=== PATIENT | male | born 1970 | race Caucasian/White ===

== ENCOUNTER 2019-03-14 09:29 | Day surgery (SDC) | payer OTHER ==
[~2019-03-14] VITALS: Ht 182.9 cm; Wt 95.8 kg
[~2019-03-14 09:29] MED LIST: ATEN50 PO; Alprazolam0.5 MG PO; CIPR500 PO; CYCL10 PO; Cipro500 MG PO; HYDACE10B PO; IBUP600 PO; LAMO100 PO; LEVO750 PO; Mobic15 MG PO; OXYC5; Prednisone20 MG PO; TAMS.4ER PO; TRAM50 PO; Ultram50 MG PO; [UNRECOGNIZED DRUG - OTHER] PO
[2019-03-14] MEDS ORDERED: VITAMIN D31000 UNIT PO (09:37)
[2019-03-14] MEDS ORDERED: TADA10TA PO (09:37)
[2019-03-14] MEDS ORDERED: LEVE500 PO (09:38)
[2019-03-14] MEDS ORDERED: LAMO100 PO (09:38)
[2019-03-14] MEDS ORDERED: Lamictal100 MG PO (09:38)
[2019-03-14] MEDS ORDERED: Inderal40 MG PO (09:39)
[2019-03-14] MEDS ORDERED: LITH300ER PO (09:39)
[2019-03-14] MEDS ORDERED: SERT100 PO (09:40)
--- NOTE | 2019-03-14 09:46 | NUR ---
History, Chart, Medications and Allergies reviewed before start of procedure. Patient confirms NPO status and agrees with scheduled surgery. Reports taking 3/4 of his prep with clear results. Patient States Post-Procedure ride home has been arranged with his mom.
--- NOTE | 2019-03-14 09:49 | NUR ---
REPORTS TAKING NO MEDICATIONS TODAY.
--- NOTE | 2019-03-14 10:28 | NUR ---
03/14/19 1028 Arsenio Aguiar History, Chart, Medications and Allergies reviewed before start of procedure.MONITOR INTACT WITH CONTINUOUS PULSE OXIMETRY AND INTERMITTENT BP.O2 VIA N/C INTACT THROUGHOUT SEDATION/PROCEDURE. Patient confirms NPO status and agrees with scheduled surgery.PATIENT DETERMINED TO BE ASA APPROPRIATE FOR PROPOFOL SEDATION PRIOR TO START OF PROCEDURE BY DR. CORTEZ.
--- NOTE | 2019-03-14 11:06 | NUR ---
DR CORTEZ SPOKE TO PT. PT SLEEPY BUT TALKING TO RN.
--- NOTE | 2019-03-14 11:15 | NUR ---
PT MOM WILL BE RIDE HOME.
--- NOTE | 2019-03-14 11:22 | NUR ---
Discharge instructions reviewed with patient. Patient verbalizes understanding. Copy given to patient to take home.PT HAS NO QUESTIONS OR CONCERNS WITH D.C. PT HAS PAPERWORK. PT TOLERATED JUICE WO DIFF. PT HAS ALL PERSONAL BELONGINGS INCLUDING GLASSES. PT DOES NOT WANT WC OUT WANTS TO WALK OUT.
--- NOTE | 2019-03-14 11:29 | NUR ---
PT DRESSED AND WALKING OUT TO MEET HIS MOM
== END 2019-03-14 22:56 | disposition home or self-care (01) ==
LOC: ORSCMMR 09:29 → ORD 10:30 → ORSCMMR 22:56
PROVIDERS: Internal Medicine Gastroenterology
PROC: 0DBB8ZX Excision of Ileum, Via Natural or Artificial Opening Endoscopic, Diagnostic (ICD-10-PCS; principal; 2019-03-14 10:30)
PROC: 0DBN8ZX Excision of Sigmoid Colon, Via Natural or Artificial Opening Endoscopic, Diagnostic (ICD-10-PCS; principal; 2019-03-14 10:30)
PROC: 0DBL8ZX Excision of Transverse Colon, Via Natural or Artificial Opening Endoscopic, Diagnostic (ICD-10-PCS; principal; 2019-03-14 10:30)
PROC: 0DBK8ZX Excision of Ascending Colon, Via Natural or Artificial Opening Endoscopic, Diagnostic (ICD-10-PCS; principal; 2019-03-14 10:30)
DX: R19.7 Diarrhea, unspecified (principal); D12.2 Benign neoplasm of ascending colon; F31.9 Bipolar disorder, unspecified; E78.00 Pure hypercholesterolemia, unspecified; F17.210 Nicotine dependence, cigarettes, uncomplicated; Z79.899 Other long term (current) drug therapy
CPT/HCPCS: 88305; J2250; J2704; J7120

== ENCOUNTER → 2020-03-27 | Outpatient (CLI) | payer OTHER ==
[~2020-03-27] MED LIST changes: +Inderal40 MG PO; +LEVE500 PO; +LITH300ER PO; +Lamictal100 MG PO; +ONDA4ODT MM; +SERT100 PO; +TADA10TA PO; +VITAMIN D31000 UNIT PO
[2020-03-27 17:06] LABS: PSA, %Free 20.1 %; PSA, Free 0.272 ng/mL
== END | disposition home or self-care (01) ==
LOC: LAB SHORT 12:49 → LAB 12:49
PROVIDERS: Nurse Practitioner Family
DX: R34 Anuria and oliguria (principal); R33.9 Retention of urine, unspecified; R39.12 Poor urinary stream
CPT/HCPCS: 84153; 84154

== ENCOUNTER 2021-04-15 06:23 | Inpatient (IN) | payer OTHER ==
[~2021-04-15] VITALS: Ht 182.9 cm; Wt 90.5 kg
[~2021-04-15 06:23] MED LIST changes: +AMOCLA875 PO; +Norco 5-325 Ta1 EACH PO; +XANAX0.5 MG PO; +ZOCOR20 MG PO
--- NOTE | 2021-04-15 07:13 | NUR ---
Ambulatory in Day Surgery. Patient states colon prep results clear. History, Chart, Medications and Allergies reviewed before start of procedure. Lungs clear T/O to Auscultation. Patient confirms NPO status and agrees with scheduled surgery. Pre-Op teaching done. Pt verbalizes understanding.
--- NOTE | 2021-04-15 09:34 | NUR ---
04/15/21 0934 Brian Dang UPON SKIN ASSESMENT ON OR TABLE PT FOUND TO HAVE REDDENED SKIN AND ABRASIONS IN THE AREA ON LOWER ABDOMEN/ UPPER PUBIS AREA. NOTIFIED.
--- NOTE | 2021-04-15 15:57 | NUR ---
PT HAS HAD ELEVATED PAIN LEVELS AT 10/10 SINCE SURGERY. FENTANYL AND NORCO APPEARED TO NOT BE EFFECTIVE. DR. GILLILAND WAS NOTIFIED AND ORDERED FENT OPERATIONS DISPATCHER. CONTINUOUS PULSE OX ORDERED FOR JIGNESH RISK PAIN MANAGEMENT. PT EDUCATED TO USE OPERATIONS DISPATCHER. PT'S DAUGHTER EDUCATED ABOUT PAIN MANAGEMENT. WILL CONTINUE TO MONITOR.
--- NOTE | 2021-04-15 19:29 | NUR ---
SHIFT SUMMARY PT IS POD#0 FROM SIGMOID COLECTOMY. PAIN HAS BEEN DIFFICULT TO MANAGE. PT IS USING A FENTANYL NEWSPAPER DISTRIBUTOR SUPERVISOR AND REPORTS IT HAS NOT BEEN EFFECTIVE FOR PAIN MANAGEMENT. PT WAS GIVEN DILAUDID WHICH IMPROVED PAIN BUT PT REPORTS PAIN IS STILL NOT TOLERABLE. PT WAS EDUCATED ABOUT PAIN MANAGMENT RISKS, AND PAIN GOALS. VSS. REPORT GIVEN TO NURA ROBISON.
[2021-04-16 04:39] LABS: BASOPHILS ABSOLUTE AUTO 0.03 K/mm3 (0.00-0.23); BASOPHILS PERCENT AUTO 0 % (0-2); EOSINOPHILS ABSOLUTE AUTO 0.02 K/mm3 (0.00-0.68); EOSINOPHILS PERCENT AUTO 0 % (0-6); Hematocrit 40.4 % (37.0-53.0); Hemoglobin 13.5 g/dL (13.5-17.5); IMMATURE GRAN ABSOLUTE AUTO 0.01 K/mm3 (0.00-0.10); IMMATURE GRAN PERCENT AUTO 0 % (0-1); LYMPHOCYTES ABSOLUTE AUTO 2.15 K/mm3 (0.84-5.20); LYMPHOCYTES PERCENT AUTO 28 % (21-46); MONOCYTES ABSOLUTE AUTO 0.92 K/mm3 (0.16-1.47); MONOCYTES PERCENT AUTO 12 % (4-13); Mean Corpuscular HGB 33.2 pg (26.0-34.0); Mean Corpuscular HGB Conc 33.4 g/dL (31.5-36.5); Mean Corpuscular Volume 99 fL (80-100); NEUTROPHILS ABSOLUTE AUTO 4.53 K/mm3 (1.96-9.15); NEUTROPHILS PERCENT AUTO 59 % (41-73); RDW Coefficient Variation 12.2 % (11.7-14.2); RDW Standard Deviation 44.6 fL (35.1-46.3); Red Blood Cell Count 4.07 M/mm3 (4.30-5.90); White Blood Cell Count 7.66 K/mm3 (4.00-11.30)
[2021-04-16 04:41] LABS: Mean Platelet Volume 10.3 fL (9.1-12.4)
[2021-04-16 05:10] LABS: Anion Gap 6 mmol/L (6-16); Blood Urea Nitrogen 14 mg/dL (8-24); Bun/Creatinine Ratio 16.1 (12.0-20.0); CO2, Blood 23 mmol/L (21-32); Calcium, Blood 7.7 mg/dL (8.5-10.1); Chloride, Blood 110 mmol/L (98-108); Creatinine, Blood 0.87 mg/dL (0.60-1.20); Glomerular Filtration Rate >60 (60-); Glucose, Blood 121 mg/dL (70-99); Potassium, Blood 4.2 mmol/L (3.5-5.5); Sodium, Blood 139 mmol/L (136-145)
--- NOTE | 2021-04-16 05:47 | NUR ---
PT IS A/OX3. ABLE TO MAKE HIS NEEDS KNOWN. PT IS S/P RT NANCY COLECTOMY. MIDLINE INCISION WITH ANA DRSG. ANA WORKING WELL, NO AIR LEAKS. HAS 3 ABD LAPT SITES WITH DERMABOND. BT'S POS X4, POS X 4, HYPOACTIVE. NOT PASSING GAS. SOME NAUSEA AT SOS. FENTANYL ATHLETIC GEAR CUSTODIAN RUNNING WELL. ON CONTINOUS PULSE OX. VILLARREAL PATENT, DRAINING CLEAR YELLOW URINE.
--- NOTE | 2021-04-16 18:55 | NUR ---
SHIFT SUMMARY PT IS POD #1 FROM LAP SIGMOID COLECTOMY. PAIN MANAGEMENT HAS BEEN DIFFICULT, FENT WOOD PLANER AND TORADOL HAVE BEEN USED. PT REPORTS PAIN MEDICATION IS MINIMALLY EFFECTIVE. PT HAS AMBULATED WITH 1 ASSIST X2 TODAY AND APPEARS TO TOLERATE WELL. PT TOLERATING SMALL AMOUNT OF CLEAR LIQUIDS. VSS. WILL REPORT TO NURA ROBISON.
--- NOTE | 2021-04-17 06:00 | NUR ---
SHIFT SUMMARY: PT A&O X4. POD#2 FOR A LAP SIGMOID COLECTOMY. LAP SITES AND MIDLINE ANA DRESSING C/D/I. ABD MIDLY DISTENDED AND SOFT. ACTIBE BT X4. PT DENIES PASSING FLATUS. DENIES N/V. TOLERATING A SMALL AMOUNT ENSURE AND ICE CHIPS. AMBULATED THE HALLWAY ONCE THIS SHIFT WITH SBA AND INDEPENDENT TO BATHROOM. VOIDING WELL SINCE REMOVAL OF VILLARREAL CATHETER. CRAMPING ABD PAIN BEING MANAGED WITH TORADOL PER EMAR. PT REPORTS LITTLE PAIN CONTROL WITH FENTANYL ASSEMBLY INSPECTOR-REPORTS DECREASE IN PAIN LEVEL FOR 20 APPROX MIN. PT APPEARS TO BE RESTING MOST OF NIGHT.
--- NOTE | 2021-04-17 14:43 | NUR ---
SHIFT SUMMARY: POD 2 RIGHT LAP SIG CHOLECTOMY PATIENT IS ALERT AND ORIENTED X4. VS ARE WNL AND IS ON RA. FENTANYL RN PRODUCTION IS ON FOR HELPING WITH PAIN MANAGEMENT THOUGH HE STILL COMPLAINS OF PAIN RATING 8-9/10. HIS 3 LAP SITES ON HIS ABD ARE C/D/I WELL HIS MIDLINE ANA. HE IS ABLE TO VOID, AMBULATE, AND TOLERATE PO INTAKE. BOWEL MOVEMENTS ARE ACTIVE. PATIENT HAS BEEN SLEEPING MAJORITY OF THE SHIFT. CALL LIGHT WITHIN REACH. CALLS APPROPRIATELY. THE PLAN IS TO ENCOURAGE WALKING AND HAVE BETTER PAIN MANAGEMENT.
--- NOTE | 2021-04-18 17:27 | NUR ---
SHIFT SUMMARY POD3 LAP SIG COLECTOMY. INCISIONS C/D/I. BASEBALL INSPECTOR AND REPAIRER PUMP DISCONTINUED TODAY, PT TOLERATING PO PAIN MEDICATIONS. VOIDING, PASSING GAS AND BOWEL MOVEMENTS. VITAL SIGNS STABLE. AMBULATING INDEPENDENTLY IN . NO N/V TODAY. WILL REPORT TO ONCOMING RN.
--- NOTE | 2021-04-19 05:36 | NUR ---
SHIFT SUMMARY PT A&O X4. PT CALL LIGHT W/IN REACH AND USING APPROPRIATELY. INDEPENDENT IN ROOM, SELF AMBULATED IN HALLS DURING THE NIGHT. PT REPORTS HAVING STRANGE DREAMS AND BEING UNABLE TO SLEEP. TOLERATING ORAL INTAKE WELL. VOIDING WELL. STEADY GAIT. DRESSING C/D/I. BOWEL TONES PRESENT IN ALL 4 Q'S. PT REPORTS PASSING GAS.
--- NOTE | 2021-04-19 18:05 | NUR ---
DISCHARGE SUMMARY DISCHARGED AT APPROX 1800. POD4 LAP SIGMOID COLECTOMY. INCISIONS SITES C/D/I, MIDLINE ANA INTACT. PT VOIDING AND PASSING STOOL. REPORTS PASSING FLATUS. AMBULATING INDEPENDENTLY. VERBAL AND WRITTEN DISCHARGE INSTRUCTIONS GIVEN. BELONGINGS GATHERED AND TAKEN OUT WITH PT. NO IVS PATENT. PAIN MANAGED WITH PO PAIN MEDICATION. SCRIPT FOR PAIN MEDICATIONS GIVEN TO PT. PT WALKED OUT WITH RN.
== END 2021-04-19 18:00 | disposition home or self-care (01) | DRG 331 ==
LOC: SURS 06:23 → PRE IP 07:30 → SURS 12:55
PROVIDERS: ADMIT Surgery
PROC: 0DTF4ZZ Resection of Right Large Intestine, Percutaneous Endoscopic Approach (ICD-10-PCS; principal; 2021-04-15 07:30)
DX: C18.1 Malignant neoplasm of appendix (principal); G25.0 Essential tremor; R56.9 Unspecified convulsions; R41.3 Other amnesia; F31.9 Bipolar disorder, unspecified; Z90.49 Acquired absence of other specified parts of digestive tract; Z98.890 Other specified postprocedural states; Z79.899 Other long term (current) drug therapy
CPT/HCPCS: 36415; 80048; 85025; 88307; 94762; A9270; J0295; J1100; J1170; J1650; J1885; J2250; J2405; J2704; J3010; J7050; J7120

== ENCOUNTER 2021-05-28 08:00 | Day surgery (SDC) | payer OTHER ==
[~2021-05-28] VITALS: Ht 182.9 cm; Wt 92.5 kg
--- NOTE | 2021-05-28 09:09 | NUR ---
Ambulatory in Day Surgery History, Chart, Medications and Allergies reviewed before start of procedure. Lungs clear T/O to Auscultation. Patient confirms NPO status and agrees with scheduled surgery. Pre-Op teaching done. Pt verbalizes understanding. Patient States Post-Procedure ride home has been arranged.
--- NOTE | 2021-05-28 12:11 | NUR ---
Discharge instructions reviewed with patient. Patient verbalizes understanding. Copy given to patient to take home. Patient up to Ambulate independently. Gait steady. Discharged via wheelchair to private car for ride home.
== END 2021-05-28 12:12 | disposition home or self-care (01) ==
LOC: ORSCMMR 08:00 → ORD 09:30 → ORSCMMR 09:30
PROVIDERS: Surgery
PROC: 05HM33Z Insertion of Infusion Device into Right Internal Jugular Vein, Percutaneous Approach (ICD-10-PCS; principal; 2021-05-28 09:30)
PROC: B543ZZA Ultrasonography of Right Jugular Veins, Guidance (ICD-10-PCS; principal; 2021-05-28 09:30)
DX: C18.1 Malignant neoplasm of appendix (principal); F17.210 Nicotine dependence, cigarettes, uncomplicated; M32.9 Systemic lupus erythematosus, unspecified; G20 Parkinson's disease; G40.909 Epilepsy, unspecified, not intractable, without status epilepticus; Z79.899 Other long term (current) drug therapy
CPT/HCPCS: 77001; C1788; J0690; J1100; J1642; J2250; J2370; J2405; J2704; J3010; J7120